=== PATIENT | male | born 1980 | race Caucasian/White ===

== ENCOUNTER 2016-08-11 16:02 | Emergency (ER) | payer MEDICAID ==
[2016-08-11] MEDS ORDERED: KETOROLAC 30 MG/ML VIAL IM ONE (16:26)
[2016-08-11] MEDS ORDERED: CEPHALEXIN 500 MG CAPSULE PO STA (16:27)
--- NOTE | 2016-08-11 16:33 | Emergency Department Record ---
History of Present Illness - General Chief complaint: Dental Stated complaint: DENTAL PAIN Time Seen by Provider: 08/11/16 16:12 Source: Patient Mode of Arrival: Ambulatory Limitations: No limitations - History of Present Illness Initial comments: pt c/o tooth ache from split tooth MD complaint: Tooth pain Onset/Timin -: Week(s) Location: Tooth # Severity: Moderate Severity scale (1-10): 9 Quality: Aching Consistency: Constant Improves with: None Worsens with: None Context- Dental: History of dental caries, Poor dental care Associated Symptoms: Toothache - Related Data Previous Rx's Medication Instructions Recorded Cephalexin [Keflex] 500 mg PO QID #30 cap 08/11/16 Gabapentin [Neurontin] 100 mg PO TID #20 capsule 08/11/16 Allergies Allergy/AdvReac Type Severity Reaction Status Date / Time codeine Allergy HIVES Verified 08/11/16 16:10 Travel Screening - Travel/Exposure Within Last 30 Days Have you traveled within the last 30 days?: No Review of Systems Reviewed: No additional complaints except as noted below Constitutional: Reports: As per HPI. Denies: Chills, Fever, Malaise, Night sweats, Weakness, Weight change Eyes: Reports: As per HPI. Denies: Eye discharge, Eye pain, Photophobia, Vision change ENT: Reports: As per HPI. Denies: Congestion, Dental pain, Ear pain, Epistaxis , Hearing loss, Throat pain Respiratory: Reports: As per HPI. Denies: Cough, Dyspnea, Hemoptysis, Stridor, Wheezes Cardiovascular: Reports: As per HPI. Denies: Arrhythmia, Chest pain, Dyspnea on exertion, Edema, Murmurs, Orthopnea, Palpitations, Paroxysmal nocturnal dyspnea, Rheumatic Fever, Syncope Endocrine: Reports: As per HPI. Denies: Fatigue, Heat or cold intolerance, Polydipsia, Polyuria Gastrointestinal: Reports: As per HPI. Denies: Abdominal pain, Constipation, Diarrhea, Hematemesis, Hematochezia, Melena, Nausea, Vomiting Genitourinary: Reports: As per HPI. Denies: Dysuria, Frequency, Hematuria, Incontinence, Retention, Testicular pain, Testicular mass, Urgency Musculoskeletal: Reports: As per HPI. Denies: Arthralgia, Back pain, Gout, Joint swelling, Myalgia, Neck pain Skin: Reports: As per HPI. Denies: Bruising, Change in color, Change in hair/ nails, Lesions, Pruritus, Rash Neurological: Reports: As per HPI. Denies: Abnormal gait, Confusion, Headache, Numbness, Paresthesias, Seizure, Tingling, Tremors, Vertigo, Weakness Psychiatric: Reports: As per HPI. Denies: Anxiety, Auditory hallucinations, Depression, Homicidal thoughts, Suicidal thoughts, Visual hallucinations Hematological/Lymphatic: Reports: As per HPI. Denies: Anemia, Blood Clots, Easy bleeding, Easy bruising, Swollen glands Past Medical History - SOCIAL HISTORY Smoking Status: Current every day smoker Alcohol Use: Occassional Drug Use: None - RESPIRATORY Hx Respiratory Disorders: No - CARDIOVASCULAR Hx Cardio Disorders: No - NEURO Hx Neuro Disorders: No - GI Hx GI Disorders: No - Hx Genitourinary Disorders: Yes Comment:: pt has one kidney (left) - ENDOCRINE Hx Endocrine Disorders: No - MUSCULOSKELETAL Hx Musculoskeletal Disorders: No - PSYCH Hx Psych Problems: No - HEMATOLOGY/ONCOLOGY Hx Hematology/Oncology Disorders: Yes Hx Cancer: Yes (renal) Family Medical History Any Significant Family History?: Yes Hx Resp Disorders: Mother Physical Exam - General General Appearance: Alert, Oriented x3, Cooperative, Mild distress - Head Head exam: Normal inspection - Eye Eye exam: Normal appearance, PERRL, EOMI Pupils: Normal accommodation - ENT ENT exam: Normal exam, Mucous membranes moist, Normal external ear exam, Normal orophraynx, TM's normal bilaterally Ear exam: Normal external inspection. negative: External canal tenderness Nasal Exam: Normal inspection. negative: Discharge, Sinus tenderness Mouth exam: Normal external inspection, Tongue normal Teeth exam: Dental caries, Dental tenderness #, Fractured tooth # Throat exam: Normal inspection. negative: Tonsillar erythema, Tonsillar exudate - Neck Neck exam: Normal inspection, Full ROM. negative: Tenderness - Respiratory Respiratory exam: Normal lung sounds bilaterally. negative: Respiratory distress - Cardiovascular Cardiovascular Exam: Regular rate, Normal rhythm, Normal heart sounds - GI/Abdominal GI/Abdominal exam: Soft, Normal bowel sounds. negative: Tenderness - Rectal Rectal exam: Deferred - exam: Deferred - Extremities Extremities exam: Normal inspection, Full ROM, Normal capillary refill. negative: Tenderness - Back Back exam: Reports: Normal inspection, Full ROM. Denies: Muscle spasm, Rash noted, Tenderness - Neurological Neurological exam: Alert, CN II-XII intact, Normal gait, Oriented X3 - Psychiatric Psychiatric exam: Normal affect, Normal mood - Skin Skin exam: Dry, Intact, Normal color, Warm Course Vital Signs 08/11/16 16:04 Temperature 97.7 F Pulse Rate 125 H Respiratory 20 Rate Blood Pressure 150/115 Pulse Ox 98 Disposition Disposition: Discharge Clinical Impression: Toothache Disposition: Home, Self-Care Condition: (1) Good Instructions: Dental Abscess (ED) Additional Instructions: follow up with dentist yuki. return sooner if worse Prescriptions: Cephalexin [Keflex] 500 mg PO QID #30 cap Gabapentin [Neurontin] 100 mg PO TID #20 capsule Forms: Patient Portal Access
== END 2016-08-11 17:27 | disposition home or self-care (01) ==
LOC: ER 16:02
DX: K08.89 Other specified disorders of teeth and supporting structures (principal)
CPT/HCPCS: 99283 ×2; 96372; J1885

== ENCOUNTER 2017-06-16 14:52 | Emergency (ER) | payer MEDICAID ==
[2017-06-16] MEDS ORDERED: ACETAMINOPHEN 325 MG TAB PO ONE (15:14)
--- NOTE | 2017-06-16 15:19 | Emergency Department Record ---
History of Present Illness - General Chief Complaint: Abdominal Pain Stated Complaint: LUMP ON UPPER ABD Time Seen by Provider: 06/16/17 15:09 Source: Patient Mode of Arrival: Ambulatory Limitations: No limitations - History of Present Illness Initial Comments: The patient is here due to pain in his abdomen for the last 5 days. The pain is located just above his Umbilicus above a previous surgical scar. There is a lump there at times but it does go down when he lays down. The patient denies any fever, chills, vomiting, diarrhea or dysuria. He also is complaining of R forearm pain at the site of a previous heroin injection. MD Complaint: Abdominal pain Onset/Timin -: Days(s) Consistency: Constant Improves With: Nothing Worsens With: Nothing Associated Symptoms: Fever - Related Data Home Medications Medication Instructions Recorded Confirmed Last Taken No Home Med [NO HOME MEDS] 06/16/17 06/16/17 Unknown Allergies Allergy/AdvReac Type Severity Reaction Status Date / Time codeine Allergy HIVES Verified 08/11/16 16:10 Travel Screening - Travel/Exposure Within Last 30 Days Have you traveled within the last 30 days?: No - Travel/Exposure Within Last Year Have you traveled outside the [place] in the last year?: No - Additonal Travel Details Have you been exposed to anyone with a communicable illness?: No - Travel Symptoms Symptom Screening: None Review of Systems Constitutional: Denies: Chills, Fever Eyes: Denies: Eye discharge ENT: Denies: Congestion Respiratory: Denies: Cough, Dyspnea Past Medical History - SOCIAL HISTORY Smoking Status: Current every day smoker Alcohol Use: Rare Drug Use: Heavy Drug Use Detail:: Other - RESPIRATORY Hx Respiratory Disorders: No - CARDIOVASCULAR Hx Cardio Disorders: No - NEURO Hx Neuro Disorders: No - GI Hx GI Disorders: No - Hx Genitourinary Disorders: Yes Comment:: pt has one kidney (left) - ENDOCRINE Hx Endocrine Disorders: No - MUSCULOSKELETAL Hx Musculoskeletal Disorders: No - PSYCH Hx Psych Problems: No - HEMATOLOGY/ONCOLOGY Hx Hematology/Oncology Disorders: Yes Hx Cancer: Yes (renal) Family Medical History Any Significant Family History?: No Hx Resp Disorders: Mother Physical Exam - General General Appearance: Alert, Oriented x3, Cooperative, No acute distress - Head Head exam: Atraumatic, Normocephalic, Normal inspection - Eye Eye exam: Normal appearance, PERRL - Neck Neck exam: Normal inspection, Full ROM. negative: Tenderness - Respiratory Respiratory exam: Normal lung sounds bilaterally. negative: Respiratory distress - Cardiovascular Cardiovascular Exam: Regular rate, Normal rhythm, Normal heart sounds - GI/Abdominal GI/Abdominal exam: Soft, Tenderness (There is mild tenderness at the area about his umbilicus where an easily reducible hernia is present. There is no overlying swelling, erythema, or warmth. ). negative: Distended, Rebound, Rigid - Extremities Extremities exam: Tenderness (There is a tender area to the proximal R forearm at a frequent IVDA injection site. It measures about 1x1 cm and has no warmth, erythema, or fluctuance present. There clearly is nothing to I and D.). negative: Normal inspection Course Vital Signs 06/16/17 14:56 Temperature 98.5 F Pulse Rate 118 H Respiratory 16 Rate Blood Pressure 126/88 Pulse Ox 97 - Reevaluation(s) Reevaluation #1: The patient is resting comfortably at this time. He is drinking water with no problems but still complaints of pain to the mid abdomen. On exam the umbilical hernia is gone when lying down but there is mild tenderness present at the site. The skin over the area appears very normal with no swelling, erythema, or warmth. 06/16/17 16:06 Reevaluation #2: The patient is resting comfortably with no complaints. I did discuss the CT results and the need for F/U. I also did discuss the case with Dr. Choi and he would be happy to see the patient in the [facility]. We will refer the patient to him in the clinic. 06/16/17 16:37 Medical Decision Making - Data Complexity MDM Data: Labs Ordered and/or Reviewed, X-Ray Ordered and/or Reviewed - Lab Data Result diagrams: 06/16/17 15:20 06/16/17 15:20 - Radiology Data Radiology results: Report reviewed (Abd CT: fat containing umbilical hernia.) Disposition Disposition: Discharge Clinical Impression: Umbilical hernia Qualifiers: Obstruction and gangrene presence: without obstruction or gangrene Qualified Code(s): K42.9 - Umbilical hernia without obstruction or gangrene Disposition: Home, Self-Care Condition: (2) Stable Instructions: Umbilical Hernia (ED) Additional Instructions: Please take Tylenol for pain and drink plenty of fluids. Please see your PCP to go over your lab results and to compare them with old results. Please see Dr. Choi in the [facility]ty Clinic next Monday as planned. Return to the ER for any increased pain, swelling, or vomiting. Referrals: [facility] Specialty Clinics [Provider Group] Forms: Patient Portal Access Time of Disposition: 16:40 Quality - Quality Measures Quality Measures: N/A - Blood Pressure Screening View Details: Yes Does Patient Have Any of the Following: No Blood Pressure Classification: Pre-Hypertensive BP Reading Systolic Measurement: 132 Diastolic Measurement: 80 Screening for High Blood Pressure: < Pre-Hypertensive BP, F/U Documented > [ G8950] Pre-Hypertensive Follow-up Interventions: Referral to alternative/primary care provider.
[2017-06-16 15:26] LABS: HEMATOCRIT 37.3 % (42.0-52.0); MEAN CELL VOLUME 87.4 fl (81-97); MEAN CORPUSCULAR HEMOGLOBIN 28.1 pg (27-33); MEAN CORPUSCULAR HGB CONC 32.2 g/dl (32-36); MEAN PLATELET VOLUME 9.9 fl (7.4-10.4); PLATELET COUNT 377 K/uL (130-400); RED BLOOD COUNT 4.27 M/uL (4.40-5.70); RED CELL DISTRIBUTION WIDTH 16.4 % (11.5-14.5); WHITE BLOOD COUNT W/O DIFF 8.3 K/uL (4.2-12.2)
[2017-06-16 15:39] LABS: BLOOD UREA NITROGEN 25 mg/dL (6-20); CREATININE 1.3 mg/dL (0.7-1.2); EST GLOMERULAR FILTRATION RATE > 60 mL/min
[2017-06-16 15:40] LABS: TOTAL PROTEIN 8.1 g/dL (6.6-8.7)
[2017-06-16 15:42] LABS: GLUCOSE,RANDOM 98 mg/dL (74-109)
[2017-06-16 15:43] LABS: URINE APPEARANCE SL CLOUDY; URINE BILIRUBIN NEGATIVE (NEGATIVE); URINE BLOOD NEGATIVE (NEGATIVE); URINE COLOR ORANGE; URINE GLUCOSE (UA) NEGATIVE (NEGATIVE); URINE KETONE TRACE (NEGATIVE); URINE LEUKOCYTE ESTERASE NEGATIVE (NEGATIVE); URINE NITRITE NEGATIVE (NEGATIVE); URINE UROBILINOGEN 0.2 E.U./dL (0.20 - 1.00)
[2017-06-16 15:44] LABS: ALBUMIN 3.8 g/dL (4.0-5.0); ALT/SGPT 56 U/L (<41); AST/SGOT 32 U/L (10.0-50.0); BILIRUBIN,DIRECT 0.3 mg/dL (0-0.3)
[2017-06-16 15:45] LABS: ALKALINE PHOSPHATASE 119 U/L (40-129); LIPASE 15 U/L (13-60)
[2017-06-16 15:56] LABS: AMPHETAMINE SCREEN URINE DETECTED; BARBITURATE SCREEN URINE NOT DETECTED; BENZODIAZEPINE SCREEN URINE DETECTED; COCAINE SCREEN URINE NOT DETECTED; METHADONE SCREEN URINE DETECTED; METHAMPHETAMINE SCREEN DETECTED; OPIATE SCREEN URINE DETECTED; OXYCODONE SCREEN URINE NOT DETECTED; PHENCYCLIDINE SCREEN URINE NOT DETECTED; PROPOXYPHENE SCREEN URINE NOT DETECTED; THC SCREEN URINE DETECTED; TRICYCLIC ANTIDEPRESSANT SCRN DETECTED
--- NOTE | 2017-06-17 09:28 | Emergency Department Record ---
History of Present Illness - General Chief Complaint: Abdominal Pain Stated Complaint: LUMP ON UPPER ABD Time Seen by Provider: 06/16/17 15:09 Source: Patient Mode of Arrival: Ambulatory Limitations: No limitations - History of Present Illness MD Complaint: Abdominal pain Onset/Timin -: Days(s) Consistency: Constant Improves With: Nothing Worsens With: Nothing Associated Symptoms: Fever - Related Data Previous Rx's Medication Instructions Recorded Cephalexin [Keflex] 500 mg PO QID #28 cap 06/17/17 Allergies Allergy/AdvReac Type Severity Reaction Status Date / Time codeine Allergy HIVES Verified 08/11/16 16:10 Travel Screening - Travel/Exposure Within Last 30 Days Have you traveled within the last 30 days?: No - Travel/Exposure Within Last Year Have you traveled outside the [place] in the last year?: No - Additonal Travel Details Have you been exposed to anyone with a communicable illness?: No - Travel Symptoms Symptom Screening: None Review of Systems Constitutional: Denies: Chills, Fever Eyes: Denies: Eye discharge ENT: Denies: Congestion Respiratory: Denies: Cough, Dyspnea Past Medical History - SOCIAL HISTORY Smoking Status: Current every day smoker Alcohol Use: Rare Drug Use: Heavy Drug Use Detail:: Other - RESPIRATORY Hx Respiratory Disorders: No - CARDIOVASCULAR Hx Cardio Disorders: No - NEURO Hx Neuro Disorders: No - GI Hx GI Disorders: No - Hx Genitourinary Disorders: Yes Comment:: pt has one kidney (left) - ENDOCRINE Hx Endocrine Disorders: No - MUSCULOSKELETAL Hx Musculoskeletal Disorders: No - PSYCH Hx Psych Problems: No - HEMATOLOGY/ONCOLOGY Hx Hematology/Oncology Disorders: Yes Hx Cancer: Yes (renal) Family Medical History Any Significant Family History?: No Hx Resp Disorders: Mother Physical Exam - General Limitations: No limitations Course Vital Signs 06/16/17 06/16/17 06/16/17 14:56 16:03 16:46 Temperature 98.5 F 98.5 F Pulse Rate 118 H 104 H Pulse Rate [ 106 H Pulse Ox Probe] Respiratory 16 16 16 Rate Blood Pressure 126/88 132/80 Blood Pressure 118/75 [Left Arm] Pulse Ox 97 97 97 - Reevaluation(s) Reevaluation #1: I had also planned on placing the patient on oral Keflex due to the mild induration to his R forearm at the previous injection site. There presently are no signs of any active infection. I did forget to order the Keflex for the patient and have made multiple attempts to contact him with no success. I did ask the patient prior to discharge if we had a working phone number for him and he did state yes but it seems to not be correct. The patient is to see Dr. Choi on Monday in the morning so we should be able to contact him then. I will send over the Keflex script to [facility] and hopefully the patient will contact us so we can tell him it is there. 06/17/17 09:23 06/17/17 09:27 Medical Decision Making - Lab Data Result diagrams: 06/16/17 15:20 06/16/17 15:20 Lab Results 06/16/17 06/16/17 06/16/17 Range/Units 15:20 15:20 15:39 WBC 8.3 (4.2-12.2) K/uL RBC 4.27 L (4.40-5.70) M/uL Hgb 12.0 L (14.0-18.0) gm/dl Hct 37.3 L (42.0-52.0) % MCV 87.4 (81-97) fl MCH 28.1 (27-33) pg MCHC 32.2 (32-36) g/dl RDW 16.4 H (11.5-14.5) % Plt Count 377 (130-400) K/uL MPV 9.9 (7.4-10.4) fl Neutrophils % 50.0 (47-80) % Band Neutrophils % 0.0 (0-5) % Eosinophils % Not Reportable Basophils % Not Reportable Lymphocytes 37.0 (16-45) % Monocytes 12.0 H (0-9) % Basophils 0.0 (0-6) % Eosinophil Count 1.0 (0-6) % Sodium 139 (136-145) mmol/L Potassium 4.4 (3.4-4.5) mmol/L Chloride 104 (98-107) mmol/L Carbon Dioxide 23.0 (22-29) mmol/L Anion Gap 12.0 (7-16) BUN 25 H (6-20) mg/dL Creatinine 1.3 H (0.7-1.2) mg/dL Estimated GFR > 60 mL/min Random Glucose 98 (74-109) mg/dL Calcium 9.1 (8.6-10.0) mg/dL Total Bilirubin 0.80 (0.2-1.0) mg/dL Direct Bilirubin 0.3 (0-0.3) mg/dL AST 32 (10.0-50.0) U/L ALT 56 H (<41) U/L Alkaline Phosphatase 119 (40-129) U/L Total Protein 8.1 (6.6-8.7) g/dL Albumin 3.8 L (4.0-5.0) g/dL Lipase 15 (13-60) U/L Urine Color [place] H Urine Appearance Sl cloudy Urine pH 5.5 (5.0-8.0) Ur Specific [place] >= 1.030 (1.002-1.030) Urine Protein 100 mg/dl H (NEGATIVE) Urine Glucose (UA) Negative (NEGATIVE) Urine Ketones Trace H (NEGATIVE) Urine Blood Negative (NEGATIVE) Urine Nitrite Negative (NEGATIVE) Urine Bilirubin Negative (NEGATIVE) Urine Urobilinogen 0.2 (0.20 - 1.00) E.U./dL Ur Leukocyte Esterase Negative (NEGATIVE) Urine Opiates Screen Ur Oxycodone Screen Urine Methadone Screen Ur Propoxyphene Screen Ur Barbituates Screen Ur Tricyclics Screen Ur Phencyclidine Scrn Ur Amphetamine Screen U Methamphetamines Scrn U Benzodiazepines Scrn Urine Cocaine Screen Urine Cannabis Screen 06/16/17 Range/Units 15:39 WBC (4.2-12.2) K/uL RBC (4.40-5.70) M/uL Hgb (14.0-18.0) gm/dl Hct (42.0-52.0) % MCV (81-97) fl MCH (27-33) pg MCHC (32-36) g/dl RDW (11.5-14.5) % Plt Count (130-400) K/uL MPV (7.4-10.4) fl Neutrophils % (47-80) % Band Neutrophils % (0-5) % Eosinophils % Basophils % Lymphocytes (16-45) % Monocytes (0-9) % Basophils (0-6) % Eosinophil Count (0-6) % Sodium (136-145) mmol/L Potassium (3.4-4.5) mmol/L Chloride (98-107) mmol/L Carbon Dioxide (22-29) mmol/L Anion Gap (7-16) BUN (6-20) mg/dL Creatinine (0.7-1.2) mg/dL Estimated GFR mL/min Random Glucose (74-109) mg/dL Calcium (8.6-10.0) mg/dL Total Bilirubin (0.2-1.0) mg/dL Direct Bilirubin (0-0.3) mg/dL AST (10.0-50.0) U/L ALT (<41) U/L Alkaline Phosphatase (40-129) U/L Total Protein (6.6-8.7) g/dL Albumin (4.0-5.0) g/dL Lipase (13-60) U/L Urine Color Urine Appearance Urine pH (5.0-8.0) Ur Specific [place] (1.002-1.030) Urine Protein (NEGATIVE) Urine Glucose (UA) (NEGATIVE) Urine Ketones (NEGATIVE) Urine Blood (NEGATIVE) Urine Nitrite (NEGATIVE) Urine Bilirubin (NEGATIVE) Urine Urobilinogen (0.20 - 1.00) E.U./dL Ur Leukocyte Esterase (NEGATIVE) Urine Opiates Screen Detected Ur Oxycodone Screen Not detected Urine Methadone Screen Detected Ur Propoxyphene Screen Not detected Ur Barbituates Screen Not detected Ur Tricyclics Screen Detected Ur Phencyclidine Scrn Not detected Ur Amphetamine Screen Detected U Methamphetamines Scrn Detected U Benzodiazepines Scrn Detected Urine Cocaine Screen Not detected Urine Cannabis Screen Detected Disposition Clinical Impression: Umbilical hernia Qualifiers: Obstruction and gangrene presence: without obstruction or gangrene Qualified Code(s): K42.9 - Umbilical hernia without obstruction or gangrene Disposition: Home, Self-Care Condition: (2) Stable Instructions: Umbilical Hernia (ED) Additional Instructions: Please take Tylenol for pain and drink plenty of fluids. Please see your PCP to go over your lab results and to compare them with old results. Please see Dr. Choi in the [facility]ty [facility] next Monday as planned. Return to the ER for any increased pain, swelling, or vomiting. Prescriptions: Cephalexin [Keflex] 500 mg PO QID #28 cap Referrals: [facility] Specialty Clinics [Provider Group] Forms: Patient Portal Access Time of Disposition: 09:27 Quality - Quality Measures Quality Measures: N/A - Blood Pressure Screening View Details: Yes Does Patient Have Any of the Following: No Blood Pressure Classification: Pre-Hypertensive BP Reading Systolic Measurement: 132 Diastolic Measurement: 80 Screening for High Blood Pressure: < Pre-Hypertensive BP, F/U Documented > [ G8950] Pre-Hypertensive Follow-up Interventions: Referral to alternative/primary care provider.
--- NOTE | 2017-06-17 09:49 | CT SCAN REPORT ---
DATE: 06/16/2017. EXAM: CT OF THE ABDOMEN AND PELVIS WITHOUT CONTRAST. HISTORY: Bump near umbilicus. TECHNIQUE: CT of the abdomen and pelvis was performed without oral or intravenous contrast. This limits evaluation of bowel and solid visceral organs. COMPARISON: None. FINDINGS: The lung bases are unremarkable. Osseus structures are grossly intact. Limited evaluation of the liver, spleen, adrenal glands, and left kidney is unremarkable. Status post right nephrectomy. The gallbladder is present and is contracted. There is a fat-containing periumbilical hernia. No herniation of bowel. No gross evidence of bowel obstruction. No free air or free fluid. Abundant stool in the colon. The appendix is not well seen. No pericecal inflammation. IMPRESSION: 1. FAT-CONTAINING PERIUMBILICAL HERNIA. 2. STATUS POST RIGHT NEPHRECTOMY. JOB NUMBER: [id number] MTDD
== END 2017-06-16 16:47 | disposition home or self-care (01) ==
LOC: ER 14:52
DX: K42.9 Umbilical hernia without obstruction or gangrene (principal); M79.631 Pain in right forearm; F11.10 Opioid abuse, uncomplicated
CPT/HCPCS: 74176; 80048; 80076; 80305; 81003; 83690; 85027; 99283; 99284